=== PATIENT | male | born 1960 ===

== ENCOUNTER 2021-05-04 22:00 | Emergency (ER) | payer MEDICAID ==
[~2021-05-04] VITALS: Ht 165.1 cm; Wt 75.0 kg
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
[2021-05-04] MEDS ORDERED: KETOROLAC 30 MG/1 ML ONE (23:21)
[2021-05-04] MEDS ORDERED: KETOROLAC 30 MG/1 ML IM ONE (23:30)
--- NOTE | 2021-05-05 00:02 | NUR ---
TECH AT BS FOR WOUND CLEANING AND SET UP FOR DERMABOND.
--- NOTE | 2021-05-05 00:02 | NUR ---
EARLIER PT. HAD REFUSED TORADOL. STATING "I AM NO IN ENOUGH PAIN TO NEED A SHOT, I DON'T LIKE SHOTS."
[2021-05-05 00:56] VITALS: BP 144/81
== END 2021-05-05 01:18 | disposition home or self-care (01) ==
LOC: ED 23:59
DX: S41.111A Laceration without foreign body of right upper arm, initial encounter (principal); M25.562 Pain in left knee; M54.5 Low back pain; M25.462 Effusion, left knee; F17.200 Nicotine dependence, unspecified, uncomplicated; W18.30XA Fall on same level, unspecified, initial encounter; Y93.89 Activity, other specified; Y92.009 Unspecified place in unspecified non-institutional (private) residence as the place of occurrence of the external cause; Y99.8 Other external cause status
CPT/HCPCS: 12001; 29505; 72110; 99284